=== PATIENT | male | born 2000 | race African-American/Black ===

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

== ENCOUNTER 2021-12-12 11:48 | Outpatient (CLI) | payer BC, MEDICAID, SELFPAY ==
[2021-12-12 17:32] LABS: Chlamydia Trachomatis by PCR Negative (Negative); Neisserai gonorrhoeae by PCR Negative (Negative); Probe Check PASS; Sample Adequacy Control PASS; Specimen Processing Control PASS
[2021-12-13 09:44] LABS: HIV - WCH Non-Reactive (Nonreactive); Syphilis Antibodies Non-reactive
[2021-12-17 16:56] LABS: HSV 1 IgG < 0.91 index (0.00-0.90); HSV 2 IgG < 0.91 index (0.00-0.90)
== END 2021-12-12 23:59 | disposition short-term general hospital (02) ==
LOC: MFPLAB 11:53
PROVIDERS: PCP Family Medicine; Referring Provider Family Medicine; Visit Provider Family Medicine
DX: Z20.2 Contact with and (suspected) exposure to infections with a predominantly sexual mode of transmission (principal)
CPT/HCPCS: 36415; 86695; 86696; 86703; 86780; 87491; 87591

== ENCOUNTER 2022-08-17 21:54 | Emergency (ER) | payer BC, MEDICAID, SELFPAY ==
[2022-08-17 21:55] VITALS: BP 125/89; PULSE 84; PULSE 89; RESP 12; RESP 15; TEMP 36.6; O2SAT 98; BMI 15.6
--- NOTE | 2022-08-17 22:03 | RAD_ITS ---
EXAM: XR CHEST, 1 VIEW CLINICAL INDICATION: intubation TECHNIQUE: Frontal view of the chest. This report was created using [employer] report generation technology. COMPARISON: None. FINDINGS: LUNGS AND PLEURAL SPACES: Unremarkable. No consolidation or edema. No pneumothorax. No effusion. HEART: Unremarkable. Cardiac silhouette not enlarged. MEDIASTINUM: Central airways and mediastinal contour are unremarkable. BONES/JOINTS: Unremarkable. SOFT TISSUES: Unremarkable. TUBES, LINES AND DEVICES: Enteric tube in the left upper quadrant in the gastric fundus, roughly 12 cm distal to the expected region of the GE junction, adequately positioned. Endotracheal tube tip 3.5 cm superior to the inferior margin of the rico. RAD/Chest 1 View (Portable) IMPRESSION: 1. Well-positioned endotracheal and enteric tubes. 2. No acute intrathoracic abnormality. Electronically Signed: Liliya Pierce MD at 23:19 EDT ,
--- NOTE | 2022-08-17 22:03 | RAD_ITS ---
ACR Level 3 findings have been noted. An addendum which confirms receipt of the report will follow. EXAM: XR ABDOMEN, 1 VIEW CLINICAL INDICATION: og tube TECHNIQUE: Frontal supine view of the abdomen/pelvis. This report was created using [employer] report generation technology. COMPARISON: None. FINDINGS:
[2022-08-17 22:15] VITALS: BP 131/88; PULSE 100; RESP 22; O2SAT 100
[2022-08-17] MEDS: 0.9% Normal Saline 1,000 ML 999 ML IV ×2 (22:19→22:29)
[2022-08-17 22:30] VITALS: BP 131/88; PULSE 88; RESP 20; O2SAT 100
[2022-08-17 22:33] LABS: Absolute Lymphocyte Count 1.85 X10^3/uL (0.83-4.51); Absolute Neutrophil Count 2.4 X10^3/uL (2.0-7.7); Basophil# 0.02 X10^3/uL; Basophil% 0.4 % (0-1); Eosinophil# 0.03 X10^3/uL; Eosinophils% 0.6 % (0-5); Hematocrit 31.5 % (40-54); Hemoglobin 9.8 g/dL (13.0-16.5); Lymphocyte # 1.85 X10^3/ul (0.83-4.51); Mean Corp Hgb Conc 31.1 g/dL (32-36); Mean Corpuscular Hgb 29.3 pg (27.0-32.0); Mean Platelet Vol. 9.6 fl (6.2-12.0); Monocyte# 0.25 X10^3/uL; Monocyte% 5.3 % (0-10); NRBC Flagged by Analyzer 0 % (0-5); Neutrophil % 50.7 % (47-70); Platelet Count 142 K/mm3 (150-450); RBC Distribution Width SD 41.3 fl (35.1-43.9); Red Blood Count 3.35 M/mm3 (4.6-6.2); White Blood Count 4.7 K/mm3 (4.4-11.0)
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
[2022-08-17 22:48] LABS: Anion Gap 18 (5-15); BUN 11 mg/dL (7-18); BUN/Creat Ratio 5.8 RATIO (10-20); Calcium,Total 7.5 mg/dL (8.5-10.1); Chloride 107 mmol/L (98-107); EST Glomerular Filtration Rate 48 mL/min (>60); Est Glom Filt Rate - Afr Amer 58 mL/min (>60); Estimated Creatinine Clearance 43.37 ml/min; Glucose 313 mg/dL (74-106); Potassium 3.1 mmol/L (3.5-5.1); Sodium Level 143 mmol/L (136-145)
--- NOTE | 2022-08-17 22:52 | ED.RN ---
Nurse to nurse report given to Mona KLEIN.
[2022-08-17 22:54] LABS: Amphetamine Urine VISTA NEGATIVE (<1000 ng/mL); Barbiturate Urine VISTA NEGATIVE (< 200 ng/mL); Benzodiazepine Urine VISTA NEGATIVE (< 200 ng/mL); Cocaine Urine VISTA NEGATIVE (< 300 ng/mL); Ecstacy Urine VISTA NEGATIVE (< 500 ng/mL); Methadone Urine VISTA NEGATIVE (< 300 ng/mL); PCP Urine VISTA NEGATIVE (< 25 ng/mL); THC Urine VISTA NEGATIVE (< 50 ng/mL); Vista UDS pH Range 8
[2022-08-17 22:54] LABS: Alcohol, Blood (Medical)-Serum < 3.0 mg/dL
[2022-08-17] MEDS: Succinylcholine Chloride 200 MG/10 ML SYRINGE 100 MG IV (23:00)
[2022-08-17 23:02] VITALS: BP 131/88; PULSE 100; RESP 22; TEMP 36.4; O2SAT 100
[2022-08-18 16:20] LABS: Bedside Glucose 212 mg/dL (74-106)
== END 2022-08-17 22:36 | disposition short-term general hospital (02) ==
PROVIDERS: Emergency Provider Student in an Organized Health Care Education/Training Program; PCP Family Medicine; Visit Provider Student in an Organized Health Care Education/Training Program
DX: S01.83XA Puncture wound without foreign body of other part of head, initial encounter (principal); J96.01 Acute respiratory failure with hypoxia; D69.6 Thrombocytopenia, unspecified; Y92.810 Car as the place of occurrence of the external cause; D64.9 Anemia, unspecified; E87.6 Hypokalemia; E83.51 Hypocalcemia; R73.9 Hyperglycemia, unspecified; I45.10 Unspecified right bundle-branch block
CPT/HCPCS: 31500; 51702; 71045; 74018; 80048; 80307; 82077; 82962; 85025; 86850; 86900; 86901; 93005; 96361; 96374; 99251; 99285; J7030; A4216; G0463